=== PATIENT | female | born 2000 | race Caucasian/White ===

== ENCOUNTER 2022-06-26 09:32 | Emergency (ER) | payer SELFPAY ==
[~2022-06-26] VITALS: Ht 167.6 cm; Wt 81.0 kg
[~2022-06-26 09:32] MED LIST: NO HOME MEDS
[2022-06-26 10:26] VITALS: BP 119/66
[2022-06-26 10:30] VITALS: BP 111/65
[2022-06-26 10:45] VITALS: BP 126/83
[2022-06-26 11:30] VITALS: BP 119/81
[2022-06-26 11:45] VITALS: BP 123/78
[2022-06-26 12:00] VITALS: BP 108/57
== END 2022-06-26 12:16 | disposition home or self-care (01) | DRG 556 ==
LOC: ED 09:32
DX: M25.572 Pain in left ankle and joints of left foot (principal); M79.622 Pain in left upper arm; M54.9 Dorsalgia, unspecified; W01.0XXA Fall on same level from slipping, tripping and stumbling without subsequent striking against object, initial encounter

== ENCOUNTER 2023-04-15 15:34 | Emergency (ER) | payer BC ==
[~2023-04-15] VITALS: Ht 167.6 cm; Wt 98.0 kg
[2023-04-15 17:38] LABS: BASO% 0.2 % (0-3); EOS% 0.1 % (0-8); HEMATOCRIT 41.4 % (37.0-47.0); HEMOGLOBIN 13.7 g/dl (12.0-16.0); IMMATURE GRANULOCYTES 0.2 % (0.0-5.0); LYMPH% 6.6 % (15-41); MEAN CELL VOLUME 86.1 fL CALC (80.0-100.0); MEAN CORPUSCULAR HGB 28.5 pG CALC (26.0-32.0); MEAN CORPUSCULAR HGB CONC 33.1 g/dL CAL (32.0-36.0); MONO% 9.1 % (2-13); NEUT# 10.34 thou/uL (2.00-7.15); NEUT% 83.8 % (42-76); RED BLOOD COUNT 4.81 mill/uL (4.20-5.60); RED CELL DISTRI WIDTH 12.2 % (11.5-15.5)
[2023-04-15 17:43] LABS: ALBUMIN 4.5 g/dL (3.2-5.0); ALKALINE PHOSPHATASE 94 u/l (38-126); ANION GAP 13 (6-22 (CALC)); BILIRUBIN, TOTAL 0.8 mg/dL (0.02-1.3); BUN 6 mg/dL (7-17); BUN/CREATININE RATIO 7 (12-20 (CALC)); CARBON DIOXIDE 26 mmol/l (22-30); CHLORIDE 100 mmol/l (95-108); CREATININE 0.8 mg/dL (0.5-1.0); GFR FOR AFR.AMER. > 60 ML/MIN (>=60 (CALC)); GFR OTHER RACES > 60 ML/MIN (>=60 (CALC)); POTASSIUM 3.9 mmol/l (3.5-5.1); SGOT/AST 42 u/l (14-36); SODIUM 136 mmol/l (137-146); TOTAL PROTEIN 8.7 g/dL (6.3-8.2)
[2023-04-15] MEDS ORDERED: AUGMENTIN400 MG/51 PO (18:27)
[2023-04-15 18:41] VITALS: BP 134/76
== END 2023-04-15 23:37 | disposition home or self-care (01) | DRG 153 ==
LOC: ED 15:34
PROVIDERS: Family Medicine
DX: J02.9 Acute pharyngitis, unspecified (principal); Z20.822 Contact with and (suspected) exposure to COVID-19
CPT/HCPCS: Q9967